=== PATIENT | male | born 1975 | race Caucasian/White ===

== ENCOUNTER 2023-08-08 12:00 | Emergency (ER) | payer BC | END 2023-08-08 12:27 | disposition home or self-care (01) | LOC: MW.ED 12:00 | DX: K04.7 Periapical abscess without sinus (principal) | CPT/HCPCS: 99283 ==

== ENCOUNTER 2023-10-28 13:23 | Observation (INO) | payer BC ==
[2023-10-28] MEDS ORDERED: Sodium Chloride 0.9% 10 ML Syringe FLUSH PRN (13:48)
[2023-10-28] MEDS ORDERED: Sodium Chloride 0.9% 2.5 ML Syringe FLUSH PRN (13:48)
[2023-10-28] MEDS ORDERED: Clindamycin Phosphate in D5W 600 MG in Premix Bag 1 BAG IV STA ×2 (13:48)
[2023-10-28] MEDS ORDERED: Sodium Chloride 0.9% 1,000 ML IV STA ×2 (13:48→15:23)
[2023-10-28] MEDS ORDERED: Dexamethasone 10 MG/ML SDV IV STA (13:49)
[2023-10-28 14:14] LABS: BASOPHILS ABSOLUTE AUTO 0.03 K/uL (0.00-0.20); BASOPHILS PERCENT AUTO 0.3 % (0.0-1.0); EOSINOPHILS ABSOLUTE AUTO 0.05 K/uL (0.00-0.45); EOSINOPHILS PERCENT AUTO 0.5 % (0.0-6.0); HEMATOCRIT 46.2 % (42.0-52.0); HEMOGLOBIN 15.5 g/dL (14.0-18.0); IMMATURE GRAN ABSOLUTE AUTO 0.02 K/uL (0.00-0.05); IMMATURE GRAN PERCENT AUTO 0.2 % (0.0-0.4); LYMPHOCYTES ABSOLUTE AUTO 1.91 K/uL (1.00-4.80); LYMPHOCYTES PERCENT AUTO 19.5 % (24.0-44.0); MEAN CORPUSCULAR HEMOGLOBIN 31.1 pg (28.0-32.0); MEAN CORPUSCULAR HGB CONC 33.5 g/dL (32.0-36.0); MEAN CORPUSCULAR VOLUME 92.8 fL (83.0-99.0); MEAN PLATELET VOLUME 8.9 fL (9.4-12.4); MONOCYTES ABSOLUTE AUTO 0.75 K/uL (0.00-0.80); MONOCYTES PERCENT AUTO 7.6 % (0.0-8.0); NEUTROPHILS ABSOLUTE AUTO 7.05 K/uL (1.80-7.70); NEUTROPHILS PERCENT AUTO 71.9 % (41.0-71.0); PLATELET COUNT,PLT 220 K/uL (150-400); RED BLOOD CELL COUNT 4.98 M/uL (4.52-5.90); WHITE BLOOD CELL COUNT,WBC 9.81 K/uL (3.9-11.3)
[2023-10-28 14:36] LABS: A/G RATIO 0.8 (0.9-1.6); ALBUMIN 3.4 g/dL (3.4-5.0); BILIRUBIN TOTAL 0.3 mg/dL (0.2-1.0); CALCIUM 9.5 mg/dL (8.5-10.1); CARBON DIOXIDE,CO2 28.4 mmol/L (21.0-32.0); EST CRCL DRUG DOSING (CG) 90.34 mL/min; POTASSIUM,K 4.1 mmol/L (3.5-5.1); PROTEIN TOTAL,TP 7.8 g/dL (6.4-8.2)
[2023-10-28] MEDS ORDERED: Iopamidol 755 MG/ML 500 ML Multipack Bottle IVPUSH STA (15:03)
[2023-10-28] MEDS ORDERED: diphenhydrAMINE 50 MG/ML SDV ONE (15:18)
[2023-10-28] MEDS ORDERED: Famotidine 20 MG/2 ML SDV ONE (15:19)
[2023-10-28] MEDS ORDERED: EPINEPHrine 1 MG/1 ML Amp ONE (15:19)
[2023-10-28] MEDS ORDERED: EPINEPHrine 1 MG/1 ML Amp IM STA (15:22)
[2023-10-28] MEDS ORDERED: methylPREDNISolone Sodium Succinate 125 MG/2 ML SDV ONE (15:22)
[2023-10-28] MEDS ORDERED: Famotidine 20 MG/2 ML SDV IVPUSH STA (15:22)
[2023-10-28] MEDS ORDERED: diphenhydrAMINE 50 MG/ML SDV IVPUSH STA (15:22)
[2023-10-28] MEDS ORDERED: Ondansetron 4 MG/2 ML SDV IVPUSH PRN (18:18)
[2023-10-28] MEDS ORDERED: Acetaminophen 325 MG Tab PO PRN (18:18)
[2023-10-28] MEDS ORDERED: oxyCODONE 5 MG Tab PO PRN (18:18)
[2023-10-28] MEDS ORDERED: Enoxaparin 30 MG/0.3 ML Syringe SUBCUT SCH (18:30)
[2023-10-28] MEDS ORDERED: Pantoprazole 40 MG in Sodium Chloride 0.9% 10 ML IVPUSH SCH (18:30)
[2023-10-28] MEDS: Clindamycin Phosphate in D5W 600 MG in Premix Bag 1 BAG IV SCH ×2 (21:05)
[2023-10-29] MEDS: Clindamycin Phosphate in D5W 600 MG in Premix Bag 1 BAG IV SCH ×2 (05:05)
[2023-10-29 05:30] LABS: BASOPHILS ABSOLUTE AUTO 0.01 K/uL (0.00-0.20); BASOPHILS PERCENT AUTO 0.1 % (0.0-1.0); HEMATOCRIT 42.3 % (42.0-52.0); HEMOGLOBIN 14.4 g/dL (14.0-18.0); IMMATURE GRAN ABSOLUTE AUTO 0.02 K/uL (0.00-0.05); IMMATURE GRAN PERCENT AUTO 0.2 % (0.0-0.4); LYMPHOCYTES ABSOLUTE AUTO 1.24 K/uL (1.00-4.80); LYMPHOCYTES PERCENT AUTO 12.7 % (24.0-44.0); MEAN CORPUSCULAR HEMOGLOBIN 31.2 pg (28.0-32.0); MEAN CORPUSCULAR VOLUME 91.6 fL (83.0-99.0); MEAN PLATELET VOLUME 9.2 fL (9.4-12.4); MONOCYTES ABSOLUTE AUTO 0.44 K/uL (0.00-0.80); MONOCYTES PERCENT AUTO 4.5 % (0.0-8.0); NEUTROPHILS ABSOLUTE AUTO 8.03 K/uL (1.80-7.70); NEUTROPHILS PERCENT AUTO 82.5 % (41.0-71.0); PLATELET COUNT,PLT 237 K/uL (150-400); RED BLOOD CELL COUNT 4.62 M/uL (4.52-5.90); WHITE BLOOD CELL COUNT,WBC 9.74 K/uL (3.9-11.3)
[2023-10-29 05:55] LABS: CALCIUM 9.2 mg/dL (8.5-10.1); CARBON DIOXIDE,CO2 24.4 mmol/L (21.0-32.0); CREATININE 0.9 mg/dL (0.8-1.3); EST CRCL DRUG DOSING (CG) 100.38 mL/min; POTASSIUM,K 4.5 mmol/L (3.5-5.1)
[2023-10-29] MEDS ORDERED: Ibuprofen 600 MG Tab PO PRN (08:00)
[2023-10-29] MEDS ORDERED: Acetaminophen 325 MG Tab PO PRN (08:01)
[2023-10-29] MEDS ORDERED: Acetaminophen 500 MG Tab PO PRN (08:58)
[2023-10-29] MEDS ORDERED: Enoxaparin 40 MG/0.4 ML Syringe SUBCUT SCH (18:00)
[2023-10-29] MEDS ORDERED: Pantoprazole 40 MG Tab.CR PO SCH (18:00)
== END 2023-10-29 12:43 | disposition home or self-care (01) ==
LOC: MW.ED 13:23 → MW.MS 17:45
PROVIDERS: ADMIT Internal Medicine; ATTEND Internal Medicine
DX: L03.211 Cellulitis of face (principal); T50.8X5A Adverse effect of diagnostic agents, initial encounter; K08.89 Other specified disorders of teeth and supporting structures
CPT/HCPCS: 36415; 70491; 80048; 80053; 85025; 87040; A9270; C9113; J0171; J0736; J1100; J1200; J1650; J3490; J7030; Q9967

== ENCOUNTER 2023-10-30 08:53 | Emergency (ER) | payer BC ==
[2023-10-30] MEDS ORDERED: Clindamycin Phosphate in D5W 600 MG in Premix Bag 1 BAG IV ONE ×2 (09:20)
[2023-10-30] MEDS ORDERED: Dexamethasone 10 MG/ML SDV IVPUSH ONE (09:20)
== END 2023-10-30 10:21 | disposition home or self-care (01) ==
LOC: MW.ED 08:53
DX: K04.7 Periapical abscess without sinus (principal); Z91.041 Radiographic dye allergy status
CPT/HCPCS: 96365; 96375; 99282; J0736; J1100; 99284